=== PATIENT | male | born 1995 | race Caucasian/White ===

== ENCOUNTER 2016-11-10 15:32 | Emergency (ER) | payer OTHER ==
[~2016-11-10] VITALS: Ht 185.4 cm; Wt 79.7 kg
[2016-11-10 15:39] VITALS: TEMP 36.7; Ht 185.4 cm; Wt 79.7 kg
[2016-11-10] MEDS ORDERED: GI COCKTAIL PO STA (15:52)
[2016-11-10] MEDS ORDERED: SODIUM CHLORIDE 0.9% 1000ML 1,000 ML IV STA (15:52)
[2016-11-10] MEDS ORDERED: ONDANSETRON 4MG OD TAB PO STA (15:52)
--- NOTE | 2016-11-10 15:54 | EMERGENCY ROOM VISIT NOTE ---
History Report prepared by Gustavo: Valerie De La Paz Under the Supervision of: Dr. Cornell Lindsay M.D. First contact with patient: 15:42 Chief Complaint: ABDOMINAL PAIN Stated Complaint: ABD PAIN History of Present Illness The patient is a 21 year old male with a past medical history of Jose Angel esophagus and abdominal surgery when he was a child who presents to the ED with a cc of intermittent abdominal pain beginning this morning when he woke up. The patient states that his pain worsened after eating breakfast. He reports that the pain is in the RUQ and is cramping. He notes that he drank a significant amount of alcohol last night and states that he had 5-8 beers. Negative changes in bowel movement, urinary symptoms, fever, chills, sore throat, congestion, nausea, vomiting. The patient states that he smoked tobacco yesterday and usually does not. Tylenol did not relieve his symptoms. Source of History: patient Onset: this morning Position: abdomen (RUQ) Quality: cramping Timing: intermittent Modifying Factors (Worsening): eating Associated Symptoms: No fevers, No chills, No sorethroat, No nausea, No vomiting, No urinary symptoms Note: Negative changes in bowel movements, congestion. Review of Systems See HPI for pertinent positives and negatives. A total of ten systems were reviewed and were otherwise negative. Past Medical & Surgical Medical Problems: (1) Christie esophagus Family History No pertinent family history stated. Social History Smoking Status: Current Every Day Smoker Marital Status: single Housing Status: lives with roommate Occupation Status: [employer] student Current/Historical Medications Scheduled Esomeprazole Magnesium (Nexium), 1 CAP PO DAILY Ranitidine (Zantac), 150 MG PO QPM Sucralfate (Carafate), 10 ML PO BID Allergies Coded Allergies: No Known Allergies (Unverified , 11/10/16) Physical Exam Vital Signs Date Time Temp Pulse Resp B/P (MAP) Pulse Ox O2 Delivery O2 Flow Rate FiO2 11/10/16 17:30 65 18 126/71 99 Room Air 11/10/16 15:39 36.7 89 16 144/79 100 Room Air Physical Exam GENERAL: Awake, alert, well-appearing, NAD HENT: Normocephalic, atraumatic. EYES: Normal conjunctiva. Sclera non-icteric. NECK: Supple. No nuchal rigidity. FROM. RESPIRATORY: CTAB, no rhonchi, wheezing, crackles CARDIAC: RRR, no MRG ABDOMEN: +Munoz's sign, reproducible RUQ TTP, no other TTP, -obturators, -psoas MSK: No chest wall TTP, no LE edema NEURO: GCS 15, CN 2-12 intact, moves all 4s on command SKIN: No rash or jaundice noted. Medical Decision & Procedures ER Provider Diagnostic Interpretation: Radiology results as stated below per my review and radiologist interpretation: ABDOMINAL ULTRASOUND, RIGHT UPPER QUADRANT FINDINGS: Pancreas: The pancreas demonstrates a normal echotexture. Liver: Unremarkable. Gallbladder: No gallbladder wall thickening. No gallstones. The gallbladder appears contracted. CBD: 3 mm. Right kidney: No hydronephrosis. IMPRESSION: No significant abnormality identified within the right upper quadrant. Electronically signed by: Asher Muhammad M.D. 11/10/2016 5:37 PM Dictated Date/Time: 11/10/2016 5:36 PM Laboratory Results 11/10/16 16:00 Red Blood Count 4.88, Mean Corpuscular Volume 96.7, Mean Corpuscular Hemoglobin 31.8, Mean Corpuscular Hemoglobin Concent 32.8, Mean Platelet Volume 11.7, Neutrophils (%) (Auto) 72.8, Lymphocytes (%) (Auto) 17.8, Monocytes (%) (Auto) 8.4, Eosinophils (%) (Auto) 0.5, Basophils (%) (Auto) 0.2, Neutrophils # (Auto) 7.26, Lymphocytes # (Auto) 1.78, Monocytes # (Auto) 0.84, Eosinophils # (Auto) 0.05, Basophils # (Auto) 0.02 11/10/16 16:00 Test 11/10/16 16:00 White Blood Count 9.98 K/uL (4.8-10.8) Red Blood Count 4.88 M/uL (4.7-6.1) Hemoglobin 15.5 g/dL (14.0-18.0) Hematocrit 47.2 % (42-52) Mean Corpuscular Volume 96.7 fL (80-100) Mean Corpuscular Hemoglobin 31.8 pg (25-34) Mean Corpuscular Hemoglobin Concent 32.8 g/dl (32-36) Platelet Count 176 K/uL (130-400) Mean Platelet Volume 11.7 fL (7.4-10.4) Neutrophils (%) (Auto) 72.8 % Lymphocytes (%) (Auto) 17.8 % Monocytes (%) (Auto) 8.4 % Eosinophils (%) (Auto) 0.5 % Basophils (%) (Auto) 0.2 % Neutrophils # (Auto) 7.26 K/uL (1.4-6.5) Lymphocytes # (Auto) 1.78 K/uL (1.2-3.4) Monocytes # (Auto) 0.84 K/uL (0.11-0.59) Eosinophils # (Auto) 0.05 K/uL (0-0.5) Basophils # (Auto) 0.02 K/uL (0-0.2) RDW Standard Deviation 52.9 fL (36.4-46.3) RDW Coefficient of Variation 15.0 % (11.5-14.5) Immature Granulocyte % (Auto) 0.3 % Immature Granulocyte # (Auto) 0.03 K/uL (0.00-0.02) Anion Gap 4.0 mmol/L (3-11) Est Creatinine Clear Calc Drug Dose 109.8 ml/min Estimated GFR () 99.6 Estimated GFR (Non- 85.9 BUN/Creatinine Ratio 10.7 (10-20) Calcium Level 9.7 mg/dl (8.5-10.1) Total Bilirubin 0.6 mg/dl (0.2-1) Direct Bilirubin 0.1 mg/dl (0-0.2) Aspartate Amino Transf (AST/SGOT) 23 U/L (15-37) Alanine Aminotransferase (ALT/SGPT) 27 U/L (12-78) Alkaline Phosphatase 91 U/L (45-117) Total Protein 8.9 gm/dl (6.4-8.2) Albumin 4.5 gm/dl (3.4-5.0) Lipase 120 U/L (73-393) Laboratory results reviewed by me Medications Administered Medications (Trade) Dose Ordered Sig/Vibha Route Start Time Stop Time Status Last Admin Dose Admin Sodium Chloride 1,000 ml @ 999 mls/hr Q1H1M STAT IV 11/10/16 15:52 11/10/16 16:52 DC 11/10/16 16:04 999 MLS/HR Famotidine (Pepcid Tab) 20 mg NOW ONCE PO 11/10/16 16:00 11/10/16 16:01 DC 11/10/16 16:15 20 MG Ondansetron HCl (Zofran Odt) 4 mg NOW STAT PO 11/10/16 15:52 11/10/16 15:55 DC 11/10/16 16:16 4 MG Lidocaine HCl (Viscous Lidocaine 2% Soln) 20 ml STK-MED ONCE .ROUTE 11/10/16 16:13 11/10/16 16:14 DC 11/10/16 16:15 20 ML Al Hydroxide/Mg Hydroxide (Maalox Susp) 30 ml STK-MED ONCE .ROUTE 11/10/16 16:13 11/10/16 16:14 DC 11/10/16 16:16 30 ML ED Course 1542: The patient was evaluated in room B5. A complete history and physical exam was performed. 1719: I reevaluated and updated the patient. 1745: I reevaluated the patient. Discussed results and discharge instructions: He verbalized understanding and agreement. The patient is ready for discharge. Medical Decision The patient is a 21 year old male with a past medical history of Jose Angel esophagus and abdominal surgery when he was a child who presents to the ED with a cc of intermittent abdominal pain beginning this morning when he woke up. Differential diagnosis: Etiologies such as appendicitis, diverticulitis, PUD, biliary pathology, UTI, pancreatitis, obstruction, mesenteric ischemia, aortic pathology, infections, inflammatory bowel disease, renal colic, as well as others were entertained. Patient was seen and evaluated at the bedside. Patient does have a history of Christie esophagus and thus has received several EGDs but without any complication to date. Patient is on ranitidine at home. Patient did admit to increased drinking last evening which may have exacerbated some of his pain. Patient's blood work is fairly unremarkable. Patient's liver enzymes and lipase also within normal limits. Patient feeling improved. Patient was told to avoid things like alcohol, tobacco, drugs, spicy or citrus foods, large meals , chocolate, or movement. Patient was told he may also take a PPI which has been prescribed in addition to following up with his PCP. GB US negative acute. Patient also is aware of the risk of the Christie's esophagus and why he gets his surveillance endoscopies. Patient was told to return if he has any worsening of symptoms. Patient was given strict follow-up, discharge, and return precautions. Patient agreed with plan of care patient was safely discharged home. Medication Reconcilliation Current Medication List: was personally reviewed by me Blood Pressure Screening Patient's blood pressure: Elevated blood pressure Blood pressure disposition: Elevated BP felt to be situational Impression Primary Impression: Gastritis Additional Impression: Right upper quadrant abdominal pain Scribe Attestation The scribe's documentation has been prepared under my direction and personally reviewed by me in its entirety. I confirm that the note above accurately reflects all work, treatment, procedures, and medical decision making performed by me. Departure Information Dispostion Home / Self-Care Prescriptions Esomeprazole Magnesium (NEXIUM) 40 Mg Cap 1 CAP PO DAILY for 30 Days, #30 CAP 5 Refills Prov: Cornell Lindsay M.D. 11/11/16 Sucralfate (CARAFATE) 1 Gm/10 Ml Nora 10 ML PO BID for 6 Days, #120 ML 1 Refill Prov: Cornell Lindsay M.D. 11/11/16 Referrals No Doctor, Assigned (PCP) [facility] Forms HOME CARE DOCUMENTATION FORM, IMPORTANT VISIT INFORMATION Patient Instructions ED PUD Vs Gastritis, Gastritis Tx, My [facility] Additional Instructions Please return to the emergency department if you have worsening or recurrent symptoms not amenable to at-home treatment. Please call for a follow-up appointment with her primary care physician. Please take your medications as prescribed. If you have other concerns and/or complaints please feel free to also call your primary care physician's office or return the ED for further evaluation, management, and treatment. Please avoid large meals, spicy/citrus foods, chocolate, mint. Please also avoid alcohol, tobacco, or drugs. Avoid NSAIDs like aspirin, motrin, aleve for pain as this can worsen gastritis. You have been examined and treated today on an emergency basis only. This is not a substitute for, or an effort to provide, complete comprehensive medical care. It is impossible to recognize and treat all injuries or illnesses in a single emergency department visit. It is therefore important that you follow up closely with [facility]. Call as soon as possible for an appointment. Thank you for your time and consideration. I look forward to speaking with you again soon. Please don't hesitate to call us if you have any questions. School Instructions Return To School: 1 day Problem Qualifiers Primary Impression: Gastritis Gastritis type: alcoholic Chronicity: acute Gastritis bleeding: presence of bleeding unspecified Qualified Codes: K29.20 - Alcoholic gastritis without bleeding
[2016-11-10] MEDS ORDERED: FAMOTIDINE 20 MG TAB PO ONE (16:00)
[2016-11-10 16:07] LABS: BASO % 0.2 %; BASO ABS # 0.02 K/uL (0-0.2); COMPLETE YES; EOS % 0.5 %; HEMATOCRIT 47.2 % (42-52); IG% 0.3 %; LYMPH % 17.8 %; LYMPH ABS # 1.78 K/uL (1.2-3.4); MEAN CELL VOLUME 96.7 fL (80-100); MEAN CORPUSCULAR HEMOGLOBIN 31.8 pg (25-34); MEAN CORPUSCULAR HGB CONC 32.8 g/dl (32-36); MEAN PLATELET VOLUME 11.7 fL (7.4-10.4); MONO % 8.4 %; NEUT % 72.8 %; PLATELET COUNT 176 K/uL (130-400); RED BLOOD COUNT 4.88 M/uL (4.7-6.1); WHITE BLOOD COUNT 9.98 K/uL (4.8-10.8)
[2016-11-10] MEDS ORDERED: ALUMINUM/MAGNESIUM SUSP 30 ML UDC ONE (16:13)
[2016-11-10] MEDS ORDERED: LIDOCAINE HCL 2% VISC SOLN 20 ML UDC ONE (16:13)
[2016-11-10 16:26] LABS: BUN/CREATININE RATIO 10.7 (10-20); CALCIUM 9.7 mg/dl (8.5-10.1); CREATININE 1.2 mg/dl (0.60-1.40); POTASSIUM 3.7 mmol/L (3.5-5.1)
[2016-11-10] MEDS ORDERED: ZNTT/150 PO (17:12)
[2016-11-10 17:30] VITALS: BP 126/71; PULSE 65; O2SAT 99
--- NOTE | 2016-11-10 17:38 | DIAGNOSTIC IMAGING REPORT ---
ABDOMINAL ULTRASOUND, RIGHT UPPER QUADRANT HISTORY: +weiss's, RUQ TTP, pain worse w/ eating. COMPARISON: None. FINDINGS: Pancreas: The pancreas demonstrates a normal echotexture. Liver: Unremarkable. Gallbladder: No gallbladder wall thickening. No gallstones. The gallbladder appears contracted. CBD: 3 mm. Right kidney: No hydronephrosis. IMPRESSION: No significant abnormality identified within the right upper quadrant. Electronically signed by: Asher Muhammad M.D. 11/10/2016 5:37 PM Dictated Date/Time: 11/10/2016 5:36 PM
[2016-11-10] MEDS ORDERED: CRFL PO (17:40)
[2016-11-10] MEDS ORDERED: NXM/40 PO (17:40)
[2016-11-11] MEDS ORDERED: CRFL PO (09:42)
[2016-11-11] MEDS ORDERED: NXM/40 PO (09:42)
== END 2016-11-10 17:54 | disposition home or self-care (01) ==
LOC: C.EDB 15:33
DX: K29.20 Alcoholic gastritis without bleeding (principal); R10.11 Right upper quadrant pain; Z79.899 Other long term (current) drug therapy; F17.200 Nicotine dependence, unspecified, uncomplicated; Z87.898 Personal history of other specified conditions